=== PATIENT | female | born 1945 | race African-American/Black ===

== ENCOUNTER 2018-07-27 11:21 | Inpatient (IN) | payer OTHER ==
[~2018-07-27] VITALS: Ht 162.6 cm; Wt 74.6 kg
--- NOTE | 2018-07-27 11:23 | NUR ---
LOLIS FROM THE STREET; LOWER BACK PAIN X YESTRDAY, PT AAOX4, PT ON MONITOR, VSS, NAD NOTED, PENDING MD FAIR
--- NOTE | 2018-07-27 12:09 | NUR ---
CALLED [facility], , , NO ANSWER, LEFT MESSAGE ON VOICEMAIL.
[2018-07-27 12:20] LABS: BASOPHILS # (AUTO) 0.1 /CMM (0.0-0.2); BASOPHILS % (AUTO) 0.4 % (0.0-2.0); HEMATOCRIT 39 % (33-45); HEMOGLOBIN 12.8 g/dL (11.5-14.8); LYMPHOCYTES # (AUTO) 0.8 /CMM (0.8-4.8); LYMPHOCYTES % (AUTO) 4.2 % (20.0-44.0); MEAN CORPUSCULAR HGB CONC 33 g/dl (31.0-36.0); MEAN CORPUSCULAR VOLUME 89 fL (82-100); MONOCYTES # (AUTO) 1.2 /CMM (0.1-1.30); MONOCYTES % (AUTO) 6.1 % (2.0-12.0); NEUTROPHILS # (AUTO) 17.6 /CMM (1.8-8.9); NEUTROPHILS % (AUTO) 89.3 % (43.0-81.0); PLATELET COUNT (AUTO) 212 /CMM (150-450); RED BLOOD CELL COUNT(AUTO) 4.41 MIL/uL (4.0-5.2); WHITE BLOOD COUNT (AUTO) 19.7 K/uL (4.3-11.0)
[2018-07-27 12:23] LABS: CALCIUM, SERUM 8.4 mg/dL (8.5-10.1); CARBON DIOXIDE 28 mmol/L (21-32); CHLORIDE 103 mmol/L (98-107); CREATININE 0.6 mg/dL (0.6-1.3); GLUCOSE 117 mg/dL (74-106); POTASSIUM 3.2 mmol/L (3.5-5.1); SODIUM SERUM 138 mmol/L (136-145); UREA NITROGEN, BLOOD 14 mg/dL (7-18)
[2018-07-27 12:28] LABS: ALANINE AMINOTRANSFERASE 56 U/L (12-78); ALBUMIN 2.7 g/dL (3.4-5.0); ALKALINE PHOSPHATASE 71 U/L (46-116); ASPARTATE AMINOTRANSFERASE 77 U/L (15-37); BILIRUBIN,DIRECT 0.2 mg/dL (0.0-0.2); BILIRUBIN,TOTAL 0.7 mg/dL (0.2-1.0); LIPASE 52 U/L (73-393); TOTAL PROTEIN, SERUM 6.5 g/dL (6.4-8.2)
[2018-07-27] MEDS ORDERED: IV NS 0.9% 1,000 ML BAG IV ONE (12:30)
[2018-07-27] MEDS ORDERED: CEFTRIAXONE 1GM BAG (ER ONLY) 50 ML IV ONE ×2 (12:30→12:35)
--- NOTE | 2018-07-27 12:40 | NUR ---
CALLED [facility], VACUUM CASTER, TRANSFERRED CALL TO
--- NOTE | 2018-07-27 12:45 | NUR ---
CALLED NURSING SUP. FOR MS BED
--- NOTE | 2018-07-27 13:00 | NUR ---
URINE COLLECTED AND SENT TO LAB
[2018-07-27 13:04] LABS: APPEARANCE,URINE Slightly Cloudy (CLEAR); BILIRUBIN,URINE SMALL (NEGATIVE); BLOOD, URINE Large Ery/uL (NEGATIVE); KETONES,URINE 15 (NEGATIVE); LEUKOCYTE ESTERASE ,URINE Negative (NEGATIVE); NITRITE, URINE Negative (NEGATIVE); PH,URINE 5.5 (5.0-8.0); PROTEIN,URINE >=300 mg/dl (NEGATIVE); UGLUCOSE Negative (NEGATIVE)
[2018-07-27 13:06] LABS: COLOR,URINE Dark Yellow (YELLOW)
[2018-07-27 13:13] LABS: BACTERIA,URINE None seen /HPF (None Seen); SQUAMOUS EPITHELIAL CELL,UR Few /HPF (None Seen); URINE AMORPHOUS PHOSPHATES Moderate /HPF (None Seen); WBC,URINE 0-3 /HPF (0-3)
--- NOTE | 2018-07-27 13:39 | NUR ---
REPORT GIVEN TO MARIA ELENA CANALES FOR MOOSE; PT WILL BE TRANSPORTED TO 2ND FLOOR
[2018-07-27 14:00] VITALS: BP 119/68
[2018-07-27] MEDS ORDERED: ACETAMINOPHEN 325 MG TABLET PO PRN (14:00)
[2018-07-27] MEDS ORDERED: HYDROCODONE/APAP 5/325MG 1 EACH TABLET PO PRN (14:00)
[2018-07-27] MEDS ORDERED: Z GUARD REMEDY 2 OZ OINT TP PRN (14:00)
[2018-07-27] MEDS ORDERED: MAG HYDROX/AL HYDROX/SIMETH 30 ML UDC PO PRN (14:00)
[2018-07-27] MEDS ORDERED: MAGNESIUM HYDROXIDE 30 ML UDC PO PRN (14:00)
[2018-07-27] MEDS ORDERED: ZOLPIDEM TARTRATE 5 MG TABLET PO PRN (14:00)
[2018-07-27] MEDS ORDERED: ONDANSETRON HCL/PF 4 MG/2 ML VIAL IVP PRN (14:00)
--- NOTE | 2018-07-27 14:09 | NUR ---
MS/RN New admission New admission from emergency room with lower back pain. Patient fully admitted, pictures taken of lower extremities and right middle finger. Dr De Paz aware and awaiting admitting orders.
[2018-07-27] MEDS ORDERED: POTASSIUM CHLORIDE 20 MEQ TAB.PRT.SR PO ONE (14:30)
[2018-07-27 14:34] VITALS: BP 119/68
[2018-07-27 16:00] VITALS: BP 135/75
--- NOTE | 2018-07-27 16:34 | NUR ---
Social service consult requested by Joana De Paz DO for homelessness. Pt. is a 73 year old female admitted to the [facility] ER for a UTI. SW met with Pt. Pt. was laying on her bed. Pt. looked disheveled. Pt. is cooperative and engaged during assessment. Pt. is oriented x 3. Pt. states that she and her are currently homeless and stay in their car. Pt. moved out of her apartment in March 2018 due to non-payment of rent. Pt. is receptive to going to [facility] at [address] [place] [address]. after discharge. Pt. is also receptive to emergency senior living resources in case there is a wait list at [facility]. Pt. declined a TAP card and states that her drives their personal vehicle. Pt. states that her works 4 days a week as a nuclear security officer and that is there only household income. Pt. states that she does not receive income from public benefits programs. Pt. states that they do not have other support systems at the moment. Pt. denied substance use. Pt. denied a history of psychiatric diagnosis. Pt. denied suicidal ideation at this time. SUKHWINDER provided pt. with the following additional senior living referrals: Center at [id number] [place] [address]. [address]. [place] [address] . [facility] [address] [place] [address] ([phone]. And the [facility] Homeless Resource Directory. Homeless waiver has been signed by pt. and placed in pt.s chart. No other services needed at this time. SW is available if needed.
--- NOTE | 2018-07-27 18:25 | NUR ---
MS/RN End note Patient lethargic but arousal, states that as she is homeless she has not slept the past couple nights due to fear of being attacked. Reassurance provided to patient that she was safe whilst in the hospital. All needs addressed, time allowed for all questions and concerns to be addressed, will endorse to nightshift.
--- NOTE | 2018-07-27 19:00 | NUR ---
MS RN OPENING NOTES: RECEIVED PT ON ROOM AIR AND IS TOLERATING WELL. PT APPEARS TO BE LETHARGIC AT THIS TIME BUT IS EASILY AROUSABLE TO NAME AND TOUCH. NO SOB NOTED. NO S/S OF DISTRESS. PT SITTING UP AT BED AT THIS TIME AND IS ASLEEP. PT HAS IV ON L AC AND IS PATENT AND INTACT. CURRENTLY H/L. HAS BEEN FLUSHED. BED ALARM ACTIVATED. BED KEPT IN LOW, LOCKED POSITION, AND SIDE RAILS X 2UP. WILL CONTINUE TO MONITOR PT.
[2018-07-27 20:00] VITALS: BP 102/60
--- NOTE | 2018-07-28 06:10 | NUR ---
MS RN CLOSING NOTES: ALL NEEDS WERE ATTENDED AND ANTICIPATED FOR. PT VERBALIZED SHE HAS NOT HAD ENOUGH SLEEP SO APPEARS TO BE LETHARGIC. PT DOES NOT WANT TO BE CLEANED AT THIS TIME. PT EASILY AROUSABLE TO NAME AND TOUCH. NO SOB NOTED. NO S/S OF DISTRESS. PT HAS IV ON L AC #20G AND IS PATENT AND INTACT. HAS BEEN FLUSHED AND CURRENTLY H/L. BED ALARM ACTIVATED. BED KEPT IN LOW, LOCKED POSITION, AND SIDE RAILS X 2UP. WILL ENDORSE TO AM NURSE FOR MOOSE.
[2018-07-28 06:24] LABS: BASOPHILS % (AUTO) 0.2 % (0.0-2.0); EOSINOPHILS % (AUTO) 1.3 % (0.0-6.0); HEMATOCRIT 37 % (33-45); HEMOGLOBIN 12.5 g/dL (11.5-14.8); MEAN CORPUSCULAR HGB CONC 34 g/dl (31.0-36.0); MEAN CORPUSCULAR VOLUME 88 fL (82-100); MONOCYTES # (AUTO) 0.9 /CMM (0.1-1.30); MONOCYTES % (AUTO) 5.6 % (2.0-12.0); NEUTROPHILS # (AUTO) 14.6 /CMM (1.8-8.9); NEUTROPHILS % (AUTO) 86.9 % (43.0-81.0); PLATELET COUNT (AUTO) 210 /CMM (150-450); RED BLOOD CELL COUNT(AUTO) 4.22 MIL/uL (4.0-5.2); WHITE BLOOD COUNT (AUTO) 16.8 K/uL (4.3-11.0)
[2018-07-28 06:44] LABS: ALANINE AMINOTRANSFERASE 49 U/L (12-78); ALBUMIN 2.1 g/dL (3.4-5.0); ALKALINE PHOSPHATASE 75 U/L (46-116); ASPARTATE AMINOTRANSFERASE 73 U/L (15-37); BILIRUBIN,DIRECT 0.1 mg/dL (0.0-0.2); BILIRUBIN,TOTAL 0.5 mg/dL (0.2-1.0); CALCIUM, SERUM 8.4 mg/dL (8.5-10.1); CARBON DIOXIDE 25 mmol/L (21-32); CHLORIDE 105 mmol/L (98-107); CREATININE 0.6 mg/dL (0.6-1.3); GLUCOSE 94 mg/dL (74-106); MAGNESIUM 2.1 mg/dL (1.8-2.4); PHOSPHORUS 1.5 mg/dL (2.5-4.9); POTASSIUM 3.9 mmol/L (3.5-5.1); SODIUM SERUM 138 mmol/L (136-145); TOTAL PROTEIN, SERUM 5.9 g/dL (6.4-8.2); UREA NITROGEN, BLOOD 16 mg/dL (7-18)
[2018-07-28 06:57] LABS: CHOLESTEROL 120 mg/dL (<200); HDL CHOLESTEROL 27 mg/dL (40-60); LDL 64 mg/dL (0-99); THYROID STIMULATING HORMONE 0.842 uIU/mL (0.358-3.74); TRIGLYCERIDES 63 mg/dL (30-150)
--- NOTE | 2018-07-28 07:54 | NUR ---
RN NOTES PATIENT A/OX3, BREATHING EVEN AND UNLABORED, NO RESP DISTRESS NOTED, KEPT COMFORTABLE, NEEDS ATTENDED, CALL LIGHT WITHIN REACH, WILL CONT TO MONITOR.
[2018-07-28 08:00] VITALS: BP 105/61
--- NOTE | 2018-07-28 09:39 | NUR ---
SUKHWINDER followed-up with Case Management regarding additional housing options for when pt. is discharged. Per caseworker intake, a pt. evaluation will be conducted for further assessment.
--- NOTE | 2018-07-28 09:52 | NUR ---
RN NOTES PATIENT WAS ABLE TO AMBULATE WITH PHYSICAL THERAPY, MIN ASSIST WITH WALKER. DENIES PAIN OR DISCOMFORT AT THIS TIME, PATIENT ASSISTED TO THE COMMODE AFTER THE THERAPY.
[2018-07-28] MEDS ORDERED: K PHOS NEUTRAL 250 MG TABLET PO ONE (11:00)
--- NOTE | 2018-07-28 11:00 | NUR ---
RN NOTES RECEIVED A CALL FROM [facility], BLOOD CULTURE SHOWS GRAM POSITIVE COCCI IN CHAINS, DR. PAGAN MADE AWARE AND RECEIVED ORDER TO START VANCO PHAMARCY TO DOSE, CALL DR. YANEZ FOR CONSULT AND X-RAY OF RIGHT HAND. ORDERS NOTED AND CARRIED OUT.
[2018-07-28] MEDS ORDERED: FEE PK DOSING 1 MIN EA MC ONE (12:17)
[2018-07-28] MEDS: CEFTRIAXONE 1 G in IV D5W 50 ML IV SCH (13:11)
[2018-07-28] MEDS: VANCOMYCIN 0.75 GM in IV D5W 250 ML IV SCH (13:56)
[2018-07-28 16:00] VITALS: BP 117/65
--- NOTE | 2018-07-28 19:20 | NUR ---
MS RN OPENING NOTES: RECEIVED PT ON ROOM AIR AND IS TOLERATING WELL. NO SOB NOTED. NO S/S OF DISTRESS. PT ON BEDSIDE COMMODE AT THIS TIME. PT HAS IV AND IS PATENT AND INTACT. CURRENTLY H/L. BED KEPT IN LOW, LOCKED POSITION, AND SIDE RAILS X 2UP. WILL CONTINUE TO MONITOR PT.
[2018-07-28 20:00] VITALS: BP 113/58
--- NOTE | 2018-07-28 20:02 | NUR ---
RN NOTES PATIENT IN STABLE CONDITION, NO SIGNIFICANT CHANGE THROUGHOUT THIS SHIFT. ENDORSED TO OPTICAL MANUFACTURING TECHNICIAN FOR MOOSE.
[2018-07-29] MEDS: VANCOMYCIN 0.75 GM in IV D5W 250 ML IV SCH ×2 (00:01→13:04)
--- NOTE | 2018-07-29 07:01 | NUR ---
MS RN NOTES: PT REFUSING TO HAVE BLOOD DRAWN. WOULD LIKE TO REST SOME MORE. WOULD LIKE SHIPYARD LABORER TO COME BACK AROUND 10AM.
--- NOTE | 2018-07-29 07:22 | NUR ---
MS RN CLOSING NOTES: ALL NEEDS WERE ATTENDED AND ANTICIPATED FOR. PT SITTING ON BSC. INSTRUCTED HER TO USE CALL LIGHT WHEN SHE IS READY TO GET BACK TO BED. IV REMAINS INTACT. CURRENTLY H/L. BED KEPT IN LOW, LOCKED POSITION, AND SIDE RAILS X 2UP. ENDORSED TO AM NURSE FOR MOOSE.
[2018-07-29 08:00] VITALS: BP 116/62
--- NOTE | 2018-07-29 08:04 | NUR ---
RN NOTES PATIENT A/OX3, BREATHING EVEN AND UNLABORED, NO SOB NOTED, PATIENT CURRENTLY EATING BREAKFAST. NO DISTRESS NOTED, DENIES PAIN OR DISCOMFORT, WOUND TREATMENT RENDERED. CALL LIGHT WITHIN REACH, WILL CONTINUE TO MONITOR.
--- NOTE | 2018-07-29 09:56 | NUR ---
transaction advisory services manager discharge update: Pt. is not able to go to snf ([facility]) upon discharge due to need for IV antibiotics and general physical condition. Spoke with Cracker Dough Mixer Andie where other options for placement are being explored.
[2018-07-29 12:55] LABS: BASOPHILS # (AUTO) 0.1 /CMM (0.0-0.2); BASOPHILS % (AUTO) 0.4 % (0.0-2.0); EOSINOPHILS % (AUTO) 0.3 % (0.0-6.0); HEMATOCRIT 38 % (33-45); HEMOGLOBIN 12.7 g/dL (11.5-14.8); LYMPHOCYTES # (AUTO) 1.1 /CMM (0.8-4.8); LYMPHOCYTES % (AUTO) 6.9 % (20.0-44.0); MEAN CORPUSCULAR HGB CONC 33 g/dl (31.0-36.0); MEAN CORPUSCULAR VOLUME 88 fL (82-100); MONOCYTES # (AUTO) 1.3 /CMM (0.1-1.30); MONOCYTES % (AUTO) 7.7 % (2.0-12.0); NEUTROPHILS # (AUTO) 13.9 /CMM (1.8-8.9); NEUTROPHILS % (AUTO) 84.7 % (43.0-81.0); PLATELET COUNT (AUTO) 248 /CMM (150-450); RED BLOOD CELL COUNT(AUTO) 4.37 MIL/uL (4.0-5.2); WHITE BLOOD COUNT (AUTO) 16.4 K/uL (4.3-11.0)
[2018-07-29 13:50] LABS: CALCIUM, SERUM 8.5 mg/dL (8.5-10.1); CARBON DIOXIDE 24 mmol/L (21-32); CHLORIDE 101 mmol/L (98-107); CREATININE 0.6 mg/dL (0.6-1.3); GLUCOSE 134 mg/dL (74-106); MAGNESIUM 2.2 mg/dL (1.8-2.4); PHOSPHORUS 3.2 mg/dL (2.5-4.9); POTASSIUM 3.9 mmol/L (3.5-5.1); SODIUM SERUM 134 mmol/L (136-145); UREA NITROGEN, BLOOD 15 mg/dL (7-18)
[2018-07-29] MEDS: CEFTRIAXONE 1 G in IV D5W 50 ML IV SCH (14:43)
[2018-07-29 16:00] VITALS: BP 102/59
[2018-07-29] MEDS: LACTOBACILLUS RHAMNOSUS GG 1 EACH CAP.SPRINK PO SCH (16:50)
--- NOTE | 2018-07-29 19:02 | NUR ---
RN NOTES PATIENT A/OX4, DENIES PAIN OR DISCOMFORT, NO SIGNIFICANT CHANGE THROUGHOUT THIS SHIFT, TURNED AND REPOSITIONED, SKIN CARE PROVIDED, INTERIANO CATH DRAINING YELLOW URINE. MARTY PATENT AND DRAINED 10ML OF SEROSANGUINEOUS OUTPUT. NEEDS ATTENDED, CALL LIGHT WITHIN REACH, WILL ENDORSE TO STITCHER SET UP OPERATOR AUTOMATIC FOR MOOSE. Addendum: 07/29/18 at 1905 by ROSALIND COLLINS RN CORRECTION: WRONG ENTRY, DIFFERENT PATIENT.
--- NOTE | 2018-07-29 19:05 | NUR ---
RN NOTES PATIENT A/OX2-3, AT BEDSIDE, DENIES PAIN OR DISCOMFORT AT THIS TIME, TOLERATED ALL MEALS. PATIENT ABLE TO AMBULATE TO THE COMMODE AND WITH PHYSICAL THERAPY. WOUND TREATMENT RENDERED, ON IV ANTIBIOTIC. SEEN BY ID. NEEDS ATTENDED AND MET, CALL LIGHT WITHIN REACH, WILL ENDORSE TO ASSET AVAILABILITY LEADER FOR MOOSE.
--- NOTE | 2018-07-29 19:15 | NUR ---
MS RN NOTES RECEIVED PT IN BED SLEEPING BUT EASILY AWOKEN VERBALLY OR BY TOUCH. PATIENT A/OX2-3 AND ABLE TO MAKE NEEDS KNOWN. PT DENIES PAIN OR DISCOMFORT AT THIS TIME. PT WITH LAC 20G PATENT AND INTACT SL. SAFETY MEASURES IN PLACE WITH BED IN LOWEST LOCKED POSITION WITH SIDE RAILS UP X2. CALL LIGHT WITHIN REACH. WILL CONTINUE TO MONITOR.
[2018-07-30] MEDS: VANCOMYCIN 1 GM in IV D5W 250 ML IV SCH ×3 (00:05→21:05)
[2018-07-30 06:29] LABS: CALCIUM, SERUM 8.3 mg/dL (8.5-10.1); CARBON DIOXIDE 28 mmol/L (21-32); CHLORIDE 103 mmol/L (98-107); CREATININE 0.6 mg/dL (0.6-1.3); GLUCOSE 124 mg/dL (74-106); POTASSIUM 3.7 mmol/L (3.5-5.1); SODIUM SERUM 139 mmol/L (136-145); UREA NITROGEN, BLOOD 12 mg/dL (7-18)
--- NOTE | 2018-07-30 06:45 | NUR ---
MS RN NOTES PT IN BED SLEEPING BUT EASILY AWOKEN VERBALLY OR BY TOUCH. PATIENT A/OX2-3 AND ABLE TO MAKE NEEDS KNOWN. PT DENIES PAIN OR DISCOMFORT AT THIS TIME. RESPIRATIONS EVEN AND UNLABORED WITH NO S/S OF ACUTE DISTRESS OR SOB NOTED THROUGHOUT SHIFT. PT KEPT CLEAN, DRY, AND COMFORTABLE. ASSISTED WITH ADLS NEEDED. PT WITH LAC 20G PATENT AND INTACT SL. SAFETY MEASURES IN PLACE WITH BED IN LOWEST LOCKED POSITION WITH SIDE RAILS UP X2. CALL LIGHT WITHIN REACH. WILL ENDORSE TO ONCOMING NURSE FOR MOOSE.
--- NOTE | 2018-07-30 07:12 | NUR ---
MS RN NOTES PATIENT IN BED ALERT ORIENTED X 3. NO ACUTE DISTRESS NOTED. BREATHING UNLABORED. NO SOB NOTED. IV ACCESS PATENT AND INTACT, NO REDNESS OR SWELLING NOTED. SAFETY MEASURES IN PLACE. CALL LIGHT WITHIN REACH. WILL CONTINUE TO MONITOR ACCORDINGLY.
[2018-07-30 08:00] VITALS: BP 120/63
[2018-07-30] MEDS: LACTOBACILLUS RHAMNOSUS GG 1 EACH CAP.SPRINK PO SCH ×2 (09:18→17:27)
[2018-07-30] MEDS: CEFTRIAXONE 1 G in IV D5W 50 ML IV SCH (14:16)
--- NOTE | 2018-07-30 14:30 | NUR ---
MS RN NOTES SEEN BY DR SR , WOUND CARE DONE AND DRESSING CHANGED.
[2018-07-30] MEDS ORDERED: LACT1CAP72 PO (14:52)
[2018-07-30] MEDS ORDERED: MAGN400O6 PO (14:52)
[2018-07-30] MEDS ORDERED: HYDR-3972 PO (14:52)
[2018-07-30] MEDS ORDERED: ZOLP5TAB2 PO (14:52)
[2018-07-30] MEDS ORDERED: MAG30ORA PO (14:52)
[2018-07-30] MEDS ORDERED: ACET325T53 PO (14:52)
--- NOTE | 2018-07-30 14:54 | NUR ---
MS RN NOTES SEEN AND EVALUATED BY DR EJ HARRISON WITH ORDERS FOR PICC LINE INSERTION , NOTED AND CARRIED OUT.
[2018-07-30 16:00] VITALS: BP 131/66
--- NOTE | 2018-07-30 19:00 | NUR ---
MS RN NOTES PATIENT IN BED ALERT ORIENTED X 3. NO ACUTE DISTRESS NOTED. BREATHING UNLABORED. NO SOB NOTED. IV ACCESS PATENT AND INTACT, NO REDNESS OR SWELLING NOTED. DUE MEDICATIONS GIVEN, NO ASE NOTED. NEEDS ATTENDED AND ANTICIPATED. KEPT CLEAN DRY AND COMFORTABLE. RIGHT THIRD FINGER DRESSING CLEAN DRY AND INTACT. SAFETY MEASURES IN PLACE. CALL LIGHT WITHIN REACH. CURRENTLY UNDERGOING PICC LINE INSERTION BY PICC LINE NURSE, WILL ENDORSE TO NIGHT NURSE FOR CONTINUITY OF CARE.
--- NOTE | 2018-07-30 19:10 | NUR ---
MS RN NOTES PICC LINE INSERTED, DONE BY PICC LINE NURSE KIRAN ON LEFT BRACHIAL DOUBLE LUMEN, 41 CM INSIDE, 32CM ARM CIRCUMFERENCE, SECURED WITH TRANSPARENT DRESSING LABELED AND DATED. NO REDNESS OR SWELLING NOTED. WILL CONTINUE TO MONITOR AND ENDORSE TO NIGHT NURSE.
[2018-07-30 20:00] VITALS: BP 153/77
[2018-07-31] MEDS: VANCOMYCIN 1 GM in IV D5W 250 ML IV SCH ×2 (05:10→14:33)
--- NOTE | 2018-07-31 06:47 | NUR ---
MS RN NOTES AWAKE & RESPONSIVE. NOT IN ANY DISTRESS. NO SOB NOTED. DENIES ANY PAIN OR DISCOMFORT AT THIS TIME. WITH PICC LINE PATENT & INTACT. CALL LIGHT WITHIN REACH. BED IN LOWEST POSITION. SR UP X 3 WITH BED ALARM ON FOR SAFETY. WILL ENDORSE TO NEXT SHIFT.
[2018-07-31 07:00] LABS: CALCIUM, SERUM 8.1 mg/dL (8.5-10.1); CARBON DIOXIDE 29 mmol/L (21-32); CHLORIDE 104 mmol/L (98-107); CREATININE 0.6 mg/dL (0.6-1.3); GLUCOSE 129 mg/dL (74-106); SODIUM SERUM 141 mmol/L (136-145); UREA NITROGEN, BLOOD 9 mg/dL (7-18)
--- NOTE | 2018-07-31 07:20 | NUR ---
RN OPENING NOTES PATIENT IN BED ALERT ORIENTED X 3. NO ACUTE DISTRESS NOTED. BREATHING UNLABORED. NO SOB NOTED. IV ACCESS PATENT AND INTACT, NO REDNESS OR SWELLING NOTED. SAFETY MEASURES IN PLACE. SAFETY MEASURES INITIATED. BED IN LOW/LOCKED POSITION, SIDERAILS UPX2, CALL LIGHT WITHIN REACH. WILL CONTINUE TO MONITOR ACCORDINGLY.
[2018-07-31 08:00] VITALS: BP 110/55
--- NOTE | 2018-07-31 08:10 | NUR ---
RN NOTES ASSISTED PATIENT TRANSFER ON THE CHAIR, SITTING. TOLERATED WELL.
[2018-07-31] MEDS: LACTOBACILLUS RHAMNOSUS GG 1 EACH CAP.SPRINK PO SCH (08:52)
[2018-07-31] MEDS: CEFTRIAXONE 1 G in IV D5W 50 ML IV SCH (13:15)
--- NOTE | 2018-07-31 18:35 | NUR ---
discharged patient in stable condition picked up by paramedics. report given to alicia bowen at [facility], instrucrtions given, verbalized understanding. all belongings returned, all forms signed. removed left ac iv access, no complications, removed name band. left upper arm picc line intact and patent, abx therapy at snf for 6weeks. photos taken and placed on chart. dc paperwork given to paramedics.
[2018-08-12] MEDS ORDERED: TOBR5DRO48 RIGHTEYE (11:22)
[2018-08-12] MEDS ORDERED: SODI473S8 TOP (11:22)
[2018-08-12] MEDS ORDERED: LEVO500T75 PO (11:22)
== END 2018-07-31 18:40 | DRG 720 ==
LOC: ER 11:25 → MEDSG2 13:12
PROVIDERS: ADMIT Student in an Organized Health Care Education/Training Program
PROC: B548ZZA Ultrasonography of Superior Vena Cava, Guidance (ICD-10-PCS; principal; 2018-07-30)
PROC: 02HV33Z Insertion of Infusion Device into Superior Vena Cava, Percutaneous Approach (ICD-10-PCS; principal; 2018-07-30)
DX: A40.9 Streptococcal sepsis, unspecified (principal); E44.0 Moderate protein-calorie malnutrition; E83.39 Other disorders of phosphorus metabolism; M86.9 Osteomyelitis, unspecified; D72.829 Elevated white blood cell count, unspecified; S61.302A Unspecified open wound of right middle finger with damage to nail, initial encounter; E66.9 Obesity, unspecified; E87.6 Hypokalemia; L03.011 Cellulitis of right finger; M48.07 Spinal stenosis, lumbosacral region; Z59.0 Homelessness; X58.XXXA Exposure to other specified factors, initial encounter; Y92.89 Other specified places as the place of occurrence of the external cause; Z68.28 Body mass index [BMI] 28.0-28.9, adult; R74.0 Nonspecific elevation of levels of transaminase and lactic acid dehydrogenase [LDH]; M51.36 Other intervertebral disc degeneration, lumbar region; L60.3 Nail dystrophy
CPT/HCPCS: 36415; 36569; 71045-TC; 72128-TC; 72131-TC; 73130-TC; 80048-TC; 80061-TC; 80076-TC; 80202-TC; 80305; 81000-TC; 83605-TC; 83690-TC; 83735-TC; 84100-TC; 84443-TC; 85025-TC; 87040-TC; 87081-TC; 87086-TC; 93307-TC; 93930-TC; 97110-TC; 97116-TC; 97530-TC; A6402; A6403; C1751; G0378; J0696; J3370; J7030; J7040; J7050; J7060

== ENCOUNTER 2018-08-10 15:29 | Inpatient (IN) | payer OTHER ==
[~2018-08-10] VITALS: Ht 154.9 cm; Wt 72.6 kg
[~2018-08-10 15:29] MED LIST: ACET325T53 PO; HYDR-3972 PO; LACT1CAP72 PO; MAG30ORA PO; MAGN400O6 PO; ZOLP5TAB2 PO
--- NOTE | 2018-08-10 16:16 | NUR ---
PT BIB PA FROM SNF, WOUND CHECK ON RT MID FINGER. PT IS AAOX4, NOT IN RESPIRATORY DISTRESS, HOOKED TO MONITOR, V/S STABLE, KEPT RESTED AND COMFORTABLE, WILL CONTINUE TO MONITOR.
--- NOTE | 2018-08-10 16:28 | NUR ---
FOSTER PA AT BEDSIDE FOR EVAL.
--- NOTE | 2018-08-10 16:31 | NUR ---
CALLED , PAGED TO CALL BACK.
[2018-08-10] MEDS ORDERED: L.AC460C PO (16:50)
[2018-08-10] MEDS ORDERED: MAG355OR18 PO (16:50)
[2018-08-10] MEDS ORDERED: SULF15DR6 OP (16:50)
[2018-08-10] MEDS ORDERED: [UNRECOGNIZED DRUG - CODE] IV (16:50)
[2018-08-10] MEDS ORDERED: CEFT1VIA15 IV (16:50)
[2018-08-10] MEDS ORDERED: HYDR-4384 PO (16:50)
[2018-08-10] MEDS ORDERED: MAGN400O6 GT (16:50)
[2018-08-10] MEDS ORDERED: ACET325T53 PO (16:50)
--- NOTE | 2018-08-10 16:55 | NUR ---
WOUND CULTURE OBTAINED AND SENT TO LAB.
[2018-08-10] MEDS ORDERED: VANCOMYCIN 1 GM in IV D5W 250 ML IV ONE (17:00)
[2018-08-10] MEDS ORDERED: PIPERACILLIN /TAZOBACTAM 3.375 G in IV D5W 50 ML IV ONE (17:00)
--- NOTE | 2018-08-10 17:00 | NUR ---
PT IS WHEELED TO CT SCAN VIA [facility].
[2018-08-10 17:26] LABS: BASOPHILS # (AUTO) 0.1 /CMM (0.0-0.2); BASOPHILS % (AUTO) 1.2 % (0.0-2.0); EOSINOPHILS % (AUTO) 1.4 % (0.0-6.0); HEMATOCRIT 36 % (33-45); HEMOGLOBIN 11.7 g/dL (11.5-14.8); LYMPHOCYTES % (AUTO) 16.1 % (20.0-44.0); MEAN CORPUSCULAR HGB CONC 33 g/dl (31.0-36.0); MEAN CORPUSCULAR VOLUME 89 fL (82-100); MONOCYTES # (AUTO) 0.6 /CMM (0.1-1.30); MONOCYTES % (AUTO) 10.3 % (2.0-12.0); NEUTROPHILS # (AUTO) 4.2 /CMM (1.8-8.9); PLATELET COUNT (AUTO) 422 /CMM (150-450); WHITE BLOOD COUNT (AUTO) 5.9 K/uL (4.3-11.0)
--- NOTE | 2018-08-10 17:42 | NUR ---
URINE SPECIMEN COLLECTED AND SENT TO LAB.
[2018-08-10 17:51] LABS: CALCIUM, SERUM 8.6 mg/dL (8.5-10.1); CARBON DIOXIDE 30 mmol/L (21-32); CHLORIDE 103 mmol/L (98-107); CREATININE 0.7 mg/dL (0.6-1.3); GLUCOSE 101 mg/dL (74-106); POTASSIUM 4.1 mmol/L (3.5-5.1); SODIUM SERUM 138 mmol/L (136-145); UREA NITROGEN, BLOOD 12 mg/dL (7-18)
[2018-08-10 17:52] LABS: APPEARANCE,URINE Clear (CLEAR); BILIRUBIN,URINE Negative (NEGATIVE); BLOOD, URINE Negative Ery/uL (NEGATIVE); COLOR,URINE Yellow (YELLOW); KETONES,URINE Negative (NEGATIVE); LEUKOCYTE ESTERASE ,URINE Negative (NEGATIVE); NITRITE, URINE Negative (NEGATIVE); PROTEIN,URINE Negative (NEGATIVE); UGLUCOSE Negative (NEGATIVE); UROBILINOGEN,URINE 0.2 EU/dL (0.2)
--- NOTE | 2018-08-10 18:19 | NUR ---
DANIELLE BO HOG COUNTER AT BEDSIDE FOR EVAL.
--- NOTE | 2018-08-10 18:27 | NUR ---
CALLED NURSING SUP. FOR MS BED
--- NOTE | 2018-08-10 19:22 | NUR ---
May olmedo in [facility] - 08/10/18 at 1932 by RIO REPORT GIVEN TO ALLY KELLY FOR MOOSE.
[2018-08-10] MEDS ORDERED: ACETAMINOPHEN 325 MG TABLET PO PRN (19:30)
[2018-08-10] MEDS ORDERED: MAG HYDROX/AL HYDROX/SIMETH 30 ML UDC PO PRN (19:30)
[2018-08-10] MEDS ORDERED: ONDANSETRON HCL/PF 4 MG/2 ML VIAL IVP PRN (19:30)
[2018-08-10] MEDS ORDERED: HYDROCODONE/APAP 5/325MG 1 EACH TABLET PO PRN (19:30)
[2018-08-10] MEDS ORDERED: HYDROCODONE/APAP 10/325MG 1 EA TABLET PO PRN (19:30)
[2018-08-10] MEDS ORDERED: MAGNESIUM HYDROXIDE 30 ML UDC PO PRN (19:30)
[2018-08-10] MEDS ORDERED: TEMAZEPAM 7.5 MG CAPSULE PO PRN (19:30)
--- NOTE | 2018-08-10 19:32 | NUR ---
REPORT GIVEN TO ALLY wilson FOR MOOSE.
--- NOTE | 2018-08-10 19:41 | NUR ---
MS 311-2
--- NOTE | 2018-08-10 19:42 | NUR ---
REPORTED FEELING BETTER. DRESSING ON R FINGER C/D/I. HELPED PT W/ BED ALLEN. WILL CONT TO MONITOR.
--- NOTE | 2018-08-10 19:51 | NUR ---
REPORT GIVEN TO MOLLY CANALES FROM THIRD FLOOR. REPEAT ECG WAS CANCELLED BY ER .
--- NOTE | 2018-08-10 20:03 | NUR ---
PT WAS TRANSFERRED TO THE THIRD FLOOR INSTABLE CONDITION.
--- NOTE | 2018-08-10 20:15 | NUR ---
RN MS ADMITTING NOTES PT ARRIVED TO UNIT VIA [facility], PT AWAKE ALERT ORIENTED X3-4, BREATHING EVEN AN UNLABORED ON ROOM AIR, NO SOB. NO COMPLAINT OF PAIN OR DISCOMFORT AT THIS TIME. PICC LINE ON THE L UPPER ARM PATENT AND FLUSHING. WOUND PICTURES TAKEN. BED IN LOWEST LOCKED POSITION, CALL LIGHTWITHIN REACH AT ALL TIMES, WILL CONTINUE TO MONITOR FREQUENTLY
[2018-08-10] MEDS ORDERED: FEE PK DOSING 1 MIN EA MC ONE (20:19)
[2018-08-10 20:30] VITALS: BP 153/64
[2018-08-10] MEDS: IV NS 0.9% 1,000 ML IV PRN (21:18)
[2018-08-10] MEDS: PIPERACILLIN /TAZOBACTAM 3.375 G in IV D5W 100 ML IV SCH (22:29)
[2018-08-11] MEDS ORDERED: PIPERACILLIN /TAZOBACTAM 3.375 G in IV D5W 50 ML IV SCH ×2
[2018-08-11] MEDS: PIPERACILLIN /TAZOBACTAM 3.375 G in IV D5W 100 ML IV SCH ×2 (06:01→14:27)
[2018-08-11 06:14] LABS: BASOPHILS # (AUTO) 0.1 /CMM (0.0-0.2); BASOPHILS % (AUTO) 1.1 % (0.0-2.0); EOSINOPHILS % (AUTO) 0.8 % (0.0-6.0); HEMATOCRIT 36 % (33-45); HEMOGLOBIN 12.1 g/dL (11.5-14.8); LYMPHOCYTES # (AUTO) 0.9 /CMM (0.8-4.8); LYMPHOCYTES % (AUTO) 20.2 % (20.0-44.0); MEAN CORPUSCULAR HGB CONC 34 g/dl (31.0-36.0); MEAN CORPUSCULAR VOLUME 88 fL (82-100); MONOCYTES # (AUTO) 0.7 /CMM (0.1-1.30); MONOCYTES % (AUTO) 14.2 % (2.0-12.0); NEUTROPHILS % (AUTO) 63.7 % (43.0-81.0); PLATELET COUNT (AUTO) 395 /CMM (150-450); WHITE BLOOD COUNT (AUTO) 4.6 K/uL (4.3-11.0)
--- NOTE | 2018-08-11 06:31 | NUR ---
RN MS CLOSING NOTES PT AWAKE ALERT ORIENTED X3-4, BREATHING EVEN AN UNLABORED ON ROOM AIR, NO SOB. NO COMPLAINT OF PAIN OR DISCOMFORT AT THIS TIME. PICC LINE ON THE L UPPER ARM PATENT AND FLUSHING WITH NS @75ML/HR. BED IN LOWEST LOCKED POSITION, CALL LIGHT WITHIN REACH AT ALL TIMES, WILL ENDORSE TO DAY NURSE FOR MOOSE.
[2018-08-11 06:36] LABS: CALCIUM, SERUM 8.7 mg/dL (8.5-10.1); CARBON DIOXIDE 25 mmol/L (21-32); CHLORIDE 104 mmol/L (98-107); CREATININE 0.7 mg/dL (0.6-1.3); GLUCOSE 91 mg/dL (74-106); PHOSPHORUS 4.2 mg/dL (2.5-4.9); POTASSIUM 3.9 mmol/L (3.5-5.1); SODIUM SERUM 138 mmol/L (136-145); UREA NITROGEN, BLOOD 8 mg/dL (7-18)
[2018-08-11 06:42] LABS: CHOLESTEROL 153 mg/dL (<200); HDL CHOLESTEROL 36 mg/dL (40-60); LDL 108 mg/dL (0-99); TRIGLYCERIDES 53 mg/dL (30-150)
[2018-08-11] MEDS: PANTOPRAZOLE 40 MG TABLET.DR PO SCH (07:59)
--- NOTE | 2018-08-11 08:51 | NUR ---
RN NOTES PATIENT A/OX3-4, BREATHING EVEN AND UNLABORED, NO SOB NOTED, DENIES PAIN OR DISCOMFORT AT THIS TIME, NEEDS ATTENDED, CALL LIGHT WITHIN REACH, WILL CONTINUE TO MONITOR.
[2018-08-11] MEDS: LACTOBACILLUS RHAMNOSUS GG 1 EACH CAP.SPRINK PO SCH ×2 (09:11→16:28)
[2018-08-11] MEDS: IV NS 0.9% 1,000 ML IV PRN (10:05)
[2018-08-11 16:00] VITALS: BP 129/59
[2018-08-11] MEDS: DAKINS QUARTER STRENGTH (0.125%) 480 ML BOTTLE TOP SCH (16:28)
[2018-08-11] MEDS ORDERED: LIDOCAINE 1%-EPI 1:100,000 20 ML VIAL TP ONE (16:30)
--- NOTE | 2018-08-11 16:35 | NUR ---
RN NOTES INFORMED DR. YANEZ PATIENT'S SACRAL WOUND. RECEIVED NO NEW ORDER AT THIS TIME.
[2018-08-11] MEDS ORDERED: VANCOMYCIN 1.5 GM in IV D5W 500 ML IV SCH (17:00)
[2018-08-11] MEDS: SULFACETAMIDE 10% OPHTH 15 ML BOTTLE EACHEYE SCH ×2 (18:24→20:20)
--- NOTE | 2018-08-11 18:53 | NUR ---
RN NOTES PT A/OX4, SITTING ON THE CHAIR, PATIENT S/P WOUND DEBRIDEMENT ON RIGHT MIDDLE FINGER WITH DR. YANEZ, RIGHT MIDDLE FINGER DRESSING, C/D/I. PHOTO TAKEN AND PLACED IN CHART. BREATHING EVEN AND UNLABORED. NO SOB OR PAIN NOTED AT THIS TIME. DENIES PAIN OR DISCOMFORT AT THIS TIME. NO SIGNIFICANT CHANGES THROUGHOUT THE SHIFT. ALL NEEDS ATTENDED AND MET, CALL LIGHT WITHIN REACH, WILL ENDORSED TO PACKAGE LINE OPERATOR RN MOOSE.
--- NOTE | 2018-08-11 20:00 | NUR ---
MS RN NOTES PATIENT AWAKE IN BED WITH NO DISTRESS NOTED. CALL LIGHT WITHIN REACH. PERIPHERAL LINE IN PERIPHERAL LINE INTACT AND PATENT. NO C/O PAIN OR DISCOMFORT. BED IN LOW LOCK SETTING. ROOM FREE OF CLUTTER AND BELONGINGS KEPT NEAR BEDSIDE. WILL CONTINUE TO MONITOR.
[2018-08-11] MEDS: CEFTRIAXONE 1 G in IV D5W 50 ML IV SCH (20:20)
[2018-08-11 20:30] VITALS: BP 134/86
[2018-08-12] MEDS: IV NS 0.9% 1,000 ML IV PRN (01:08)
[2018-08-12 06:38] LABS: CALCIUM, SERUM 8.8 mg/dL (8.5-10.1); CARBON DIOXIDE 26 mmol/L (21-32); CHLORIDE 104 mmol/L (98-107); CREATININE 0.6 mg/dL (0.6-1.3); GLUCOSE 93 mg/dL (74-106); SODIUM SERUM 139 mmol/L (136-145); UREA NITROGEN, BLOOD 8 mg/dL (7-18)
--- NOTE | 2018-08-12 06:55 | NUR ---
MS RN NOTES PATIENT ASLEEP IN BED WITH NO DISTRESS NOTED. CALL LIGHT WITHIN REACH. ALL DUE MEDS GIVEN ORDERED WITH NO ASE NOTED. PICC LINE INTACT AND PATENT. NO C/O PAIN OR DISCOMFORT BED IN LOW LOCK SETTING. ALL BELONGINGS KEPT NEAR BEDSIDE. WILL ENDORSE TO ONCOMING SHIFT.
--- NOTE | 2018-08-12 07:39 | NUR ---
RN NOTES PATIENT A/OX3, BREATHING EVEN AND UNLABORED, NO SOB NOTED, KEPT COMFORTABLE, RIGHT MIDDLE FINGER DRESSING C/D/I. NEEDS ATTENDED AND MET, CALL LIGHT WITHIN REACH, WILL CONTINUE TO MONITOR.
[2018-08-12 08:00] VITALS: BP 145/71
[2018-08-12] MEDS: LACTOBACILLUS RHAMNOSUS GG 1 EACH CAP.SPRINK PO SCH ×2 (08:30→17:33)
[2018-08-12] MEDS: PANTOPRAZOLE 40 MG TABLET.DR PO SCH (08:30)
[2018-08-12] MEDS: SULFACETAMIDE 10% OPHTH 15 ML BOTTLE EACHEYE SCH ×4 (08:32→21:26)
[2018-08-12] MEDS: DAKINS QUARTER STRENGTH (0.125%) 480 ML BOTTLE TOP SCH (08:32)
--- NOTE | 2018-08-12 09:37 | NUR ---
WOUND CARE CONSULT WOUND CARE RECEIVED CONSULT FOR RIGHT HAND THIRD DIGIT CELLULITIS POSSIBLE OSTEO. WOUND CARE WILL DEFER CONSULT AND TREATMENT PLAN TO PLASTIC SURGICAL TEAM WHO ARE CURRENTLY FOLLOWING THIS PATIENT. PATIENT WITH MIAH AT 17, ALL PRESSURE ULCER PREVENTION MEASURES ARE NOTED TO BE IN PLACE AT THIS TIME. WILL SEE PRN.
--- NOTE | 2018-08-12 10:30 | NUR ---
RN NOTES WOUND TREATMENT RENDERED. DRESSING CHANGED ON RIGHT MIDDLE FINGER.
[2018-08-12] MEDS ORDERED: LEVO500T75 PO (11:22)
[2018-08-12] MEDS ORDERED: TOBR5DRO48 RIGHTEYE (11:22)
[2018-08-12] MEDS ORDERED: SODI473S8 TOP (11:22)
--- NOTE | 2018-08-12 13:00 | NUR ---
RN NOTES PATIENT ASSISTED TO CHAIR DURING MEALS. PHYSICAL THERAPY AMBULATED THE PATIENT TO HALLWAY AND BACK TO THE ROOM WITH A WALKER IN NO DISTRESS. ATTENDED TO NEEDS. WILL CONTINUE TO MONITOR.
--- NOTE | 2018-08-12 13:27 | NUR ---
RN NOTES REPORT GIVEN TO TAVON RN ARCHITECTURE FACULTY MEMBER AT [facility], RE: DISCHARGE INSTRUCTIONS. AND VERBALIZED UNDERSTANDING. PATIENT'S AMBULANCE ETA IS 1500.
--- NOTE | 2018-08-12 14:09 | NUR ---
RN NOTES SKIN ASSESSMENT DONE, SACRAL PHOTO SHOWED TO ZAINAB BANERJEE OF DR. YANEZ. RECEIVED ORDER FROM DR. YANEZ TO HOLD DISCHARGE. DR. LIEN SALCEDO MADE AWARE.
--- NOTE | 2018-08-12 15:30 | NUR ---
RN NOTES S/P SACRAL DEBRIDEMENT BY ZAINAB BANERJEE, APPLIED MEPILEX, AT THIS TIME, NO BLEEDING NOTED. PATIENT ASSISTED TO BEDSIDE COMMODE TWICE BY INSPECTOR PRECISION ASSEMBLY, PATIENT ABLE TO MOVE IN BED INDEPENDENTLY. ENCOURAGED PATIENT TO TURN SIDE TO SIDE FOR SKIN MANAGEMENT. HYDROGEL ORDERED BY ZAINAB BANERJEE, AND AWAITING FOR DELIVERY FROM PHARMACY. PER PATIENT, "I GOT THIS WOUND ON MY BEHIND BECAUSE OF THAT PLACE (REFERRING TO [facility] [place]), I DIDN'T HAVE THIS BEFORE GOING THERE."
[2018-08-12 16:00] VITALS: BP 142/64
--- NOTE | 2018-08-12 16:20 | NUR ---
RN NOTES REPORT GIVEN TO RENUKA CANALES FOR CONTINUITY OF CARE. RECEIVED ORDER FROM DR. SALCEDO TO [facility], PHARMACY TO DOSE. ORDER NOTED AND CARRIED OU T.
--- NOTE | 2018-08-12 16:30 | NUR ---
MS RN Note Received report from ALLY Chaidez for continuity of care. Patient currently asleep in no acute distress. Will continue to monitor.
[2018-08-12] MEDS ORDERED: VANCOMYCIN 1.5 GM in IV D5W 500 ML IV SCH (17:00)
[2018-08-12] MEDS: HYDROGEL DRESSING 90 GM TUBE TP SCH (17:37)
--- NOTE | 2018-08-12 17:55 | NUR ---
MS RN Note Pharmacy to deliver Vancomycin per new order. Spoke with pharmacist over the phone. Will follow-up.
--- NOTE | 2018-08-12 18:30 | NUR ---
MS RN Closing Note Patient currently awake, semi-Overton's position. Alert and oriented x3, able to make needs known. No acute distress. Respirations even and unlabored on room air. No complaints of pain or discomfort at this time. PICC line access to the left upper arm intact, patent and infusing fluids as ordered. Dressing noted to the right middle finger, clean, dry and intact. Fall and safety precautions in place: bed in lowest and locked position, side rails up x 2, bed alarm on, call light and personal possessions within reach. Floor free of clutter and well-lit. Patient verbalized understanding of safety precautions. All needs attended to. Will endorse to to shift leader RN for continuity of care.
--- NOTE | 2018-08-12 19:15 | NUR ---
MS RN NOTES RECEIVED ON BED SLEEPING,AROUSABLE TO VERBAL STIMULI.BREATHING REGULAR,NOT IN ANY FORM OF DISTRESS.PICC LINE LEFT UPPER ARM INTACT AND PATENT.MEPILEX INTACT ON SACRAL WOUND,ENCOURAGED TO REPOSITION SELF WHILE ON BED.BED ON LOWEST POSITION AND LOCKED.CALL LIGHT IN REACH,NEEDS ANTICIPATED.
[2018-08-12] MEDS: CEFTRIAXONE 1 G in IV D5W 50 ML IV SCH (19:32)
[2018-08-12 20:00] VITALS: BP 140/67
[2018-08-12 20:04] VITALS: BP 140/67
[2018-08-13] MEDS: IV NS 0.9% 1,000 ML IV PRN (00:31)
--- NOTE | 2018-08-13 05:00 | NUR ---
MS RN NOTES DRESSING CHANGE DONE ON SACRAL AND RIGHT MIDDLE FINGER,NO BLEEDING NOTED.
--- NOTE | 2018-08-13 06:24 | NUR ---
MS RN NOTES SLEPT WELL AT NIGHT.PAIN TOLERABLE ON RIGHT MIDDLE FINGER.SACRAL WOUND TREAT WITH HYDROGEL AND COVER WITH MEPILEX.ABLE TO TRANSFER TO BEDSIDE COMMODE ASSISTED.IN NO ACUTE DISTRESS.IVF IN PROGRESS.PICC LINE DRESSING CHANGED DONE ASEPTICALLY.WILL ENDORSE TO DAY NURSE FOR MOOSE.
[2018-08-13 06:46] LABS: CALCIUM, SERUM 8.7 mg/dL (8.5-10.1); CARBON DIOXIDE 25 mmol/L (21-32); CHLORIDE 105 mmol/L (98-107); CREATININE 0.7 mg/dL (0.6-1.3); GLUCOSE 90 mg/dL (74-106); POTASSIUM 4.2 mmol/L (3.5-5.1); SODIUM SERUM 139 mmol/L (136-145); UREA NITROGEN, BLOOD 9 mg/dL (7-18)
[2018-08-13 08:00] VITALS: BP 127/58
--- NOTE | 2018-08-13 08:00 | NUR ---
MS RN OPENING NOTES Received Patient comfortable and resting in bed. A/O x 3. VS stable with no acute distress. Breathing even and unlabored on room air with no respiratory distress. Denies pain. PICC line on JORGE clean, dry, intact and flushing well. IVF NS running at 75ml/hr. Wound dressing on RIGHT MIDDLE FINGER soiled. Will intervene and change dressing as ordered. Safety precautions in place. Bed locked and set to lowest position with side rails x 2 up. Will continue to monitor.
[2018-08-13] MEDS: LACTOBACILLUS RHAMNOSUS GG 1 EACH CAP.SPRINK PO SCH ×2 (08:42→17:19)
[2018-08-13] MEDS: PANTOPRAZOLE 40 MG TABLET.DR PO SCH (08:42)
[2018-08-13] MEDS: SULFACETAMIDE 10% OPHTH 15 ML BOTTLE EACHEYE SCH ×4 (08:42→21:45)
[2018-08-13] MEDS: DAKINS QUARTER STRENGTH (0.125%) 480 ML BOTTLE TOP SCH (08:43)
[2018-08-13] MEDS: HYDROGEL DRESSING 90 GM TUBE TP SCH (08:43)
[2018-08-13 10:00] VITALS: BP 127/58
[2018-08-13 16:00] VITALS: BP 137/70
--- NOTE | 2018-08-13 19:33 | NUR ---
MS RN CLOSING NOTES Patient comfortable and resting in chair. A/O x 3. VS stable with no acute distress. Breathing even and unlabored on room air with no respiratory distress. Denies pain. PICC line on JORGE clean, dry, intact and flushing well. IVF NS running at 75ml/hr. Wound dressing on RIGHT MIDDLE FINGER clean, dry and intact. Sacral dressing clean, dry and intact. Safety precautions in place. Bed locked and set to lowest position with side rails x 2 up. All needs rendered at this time. Will endorse plan of care to oncoming shift.
[2018-08-13 20:00] VITALS: BP 119/64
[2018-08-13] MEDS: CEFTRIAXONE 1 G in IV D5W 50 ML IV SCH (20:01)
[2018-08-13] MEDS ORDERED: FEE PK DOSING 1 MIN EA MC ONE ×2 (20:42→20:43)
[2018-08-13] MEDS ORDERED: VANCOMYCIN 1 GM in IV D5W 250 ML IV SCH (22:00)
[2018-08-14] MEDS: IV NS 0.9% 1,000 ML IV PRN (05:10)
[2018-08-14 06:47] LABS: CALCIUM, SERUM 8.6 mg/dL (8.5-10.1); CARBON DIOXIDE 26 mmol/L (21-32); CHLORIDE 104 mmol/L (98-107); CREATININE 0.7 mg/dL (0.6-1.3); GLUCOSE 93 mg/dL (74-106); SODIUM SERUM 139 mmol/L (136-145); UREA NITROGEN, BLOOD 9 mg/dL (7-18)
--- NOTE | 2018-08-14 07:02 | NUR ---
MS RN NOTES AWAKE & RESPONSIVE. NOT IN ANY DISTRESS. NO SOB NOTED. DENIES ANY PAIN OR DISCOMFORT AT THIS TIME. WITH IVF INFUSING WELL. MONITORED ACCORDINGLY. CALL LIGHT WITHIN REACH. BED IN LOWEST POSITION. SR UP X 3 WITH BED ALARM ON FOR FOR SAFETY. WILL ENDORSE TO NEXT SHIFT.
[2018-08-14 07:42] VITALS: BP 141/63
[2018-08-14] MEDS: PANTOPRAZOLE 40 MG TABLET.DR PO SCH (07:46)
[2018-08-14 08:00] VITALS: BP 141/63
--- NOTE | 2018-08-14 08:00 | NUR ---
MS RN OPENING NOTES Received Patient comfortable and resting in chair. A/O x 3. VS stable with no acute distress. Breathing even and unlabored on room air with no respiratory distress. Denies pain. PICC line on JORGE clean, dry, intact and flushing well. IVF NS running at 75ml/hr. Wound dressing on RIGHT MIDDLE FINGER soiled. Will intervene and change dressing as ordered. Sacral dressing clean, dry and intact. Safety precautions in place. Call light within reach. Will continue to monitor.
[2018-08-14] MEDS: SULFACETAMIDE 10% OPHTH 15 ML BOTTLE EACHEYE SCH ×2 (09:40→13:06)
[2018-08-14] MEDS: LACTOBACILLUS RHAMNOSUS GG 1 EACH CAP.SPRINK PO SCH (09:40)
[2018-08-14] MEDS: DAKINS QUARTER STRENGTH (0.125%) 480 ML BOTTLE TOP SCH (09:41)
[2018-08-14] MEDS: HYDROGEL DRESSING 90 GM TUBE TP SCH (09:41)
--- NOTE | 2018-08-14 17:34 | NUR ---
UTILITY SALES REPRESENTATIVE NOTES Patient discharged to [facility] at this time. VS stable with no acute distress. Breathing even and unlabored on room air with no respiratory distress. Denies pain. Skin assessment pictures taken and placed in chart. Medication reconciliation and discharge orders reviewed and explained to Patient. Patient verbalized understanding. Paperwork given to Ambulance transport. Report given to Omer CANALES. All belongings with Patient. Patient will continue IV ABX, Wound TX and follow up with MD at [facility]. Patient picked up by Ambulance transport. Addendum: 08/14/18 at 1958 by LUIS DANIEL CABRERA RN PICC line on JORGE clean, dry, intact and flushing well. RIGHT HAND THIRD DIGIT dressing clean, dry, and intact. Sacrum st. 3 clean with Hydrogel and Mepilex dressing in place.
== END 2018-08-14 17:35 | DRG 320 ==
LOC: ER 15:34 → MED 19:45
PROVIDERS: ADMIT Nurse Practitioner Acute Care; ATTEND Nurse Practitioner Acute Care
PROC: 0PBT0ZZ Excision of Right Finger Phalanx, Open Approach (ICD-10-PCS; principal; 2018-08-11)
PROC: 0JB70ZZ Excision of Back Subcutaneous Tissue and Fascia, Open Approach (ICD-10-PCS; 2018-08-12)
DX: M86.8X4 Other osteomyelitis, hand (principal); E44.0 Moderate protein-calorie malnutrition; L89.153 Pressure ulcer of sacral region, stage 3; D68.59 Other primary thrombophilia; L03.011 Cellulitis of right finger; M48.00 Spinal stenosis, site unspecified; Z68.30 Body mass index [BMI] 30.0-30.9, adult; E66.9 Obesity, unspecified; L60.3 Nail dystrophy; R53.1 Weakness; H10.9 Unspecified conjunctivitis; G89.29 Other chronic pain
CPT/HCPCS: 36415; 71045-TC; 73200-TC; 80048-TC; 80061-TC; 80202-TC; 81000-TC; 83605-TC; 83735-TC; 84100-TC; 85025-TC; 87040-TC; 87070-TC; 87081-TC; 87186-TC; 97110-TC; 97116-TC; 97530-TC; A6248; A6402; A6403; A6407; G0378; J0696; J2543; J3370; J3490; J7030; J7050; J7060

== ENCOUNTER 2018-08-19 08:54 | Inpatient (IN) ==
[~2018-08-19] VITALS: Ht 160 cm; Wt 75.3 kg
[~2018-08-19 08:54] MED LIST changes: +CEFT1VIA15 IV; -HYDR-3972 PO; +HYDR-4384 PO; +L.AC460C PO; -LACT1CAP72 PO; +LEVO500T75 PO; -MAG30ORA PO; +MAG355OR18 PO; +MAGN400O6 GT; -MAGN400O6 PO; +SODI473S8 TOP; +SULF15DR6 OP; +TOBR5DRO48 RIGHTEYE; +VANC1.5P20 IV; -ZOLP5TAB2 PO
--- NOTE | 2018-08-19 09:10 | NUR ---
MARIELLE BANERJEE FROM [facility] FOR POSSIBLE R MIDDLE FINGER AMPUTATION. PATIENT CAME IN WITH JORGE PICC LINE. PLACED ON THE MONITOR. WILL MONITOR.
[2018-08-19 09:26] LABS: BASOPHILS % (AUTO) 0.9 % (0.0-2.0); EOSINOPHILS % (AUTO) 4.5 % (0.0-6.0); HEMATOCRIT 35 % (33-45); HEMOGLOBIN 11.9 g/dL (11.5-14.8); LYMPHOCYTES # (AUTO) 0.7 /CMM (0.8-4.8); MEAN CORPUSCULAR HGB CONC 34 g/dl (31.0-36.0); MEAN CORPUSCULAR VOLUME 88 fL (82-100); MONOCYTES # (AUTO) 0.5 /CMM (0.1-1.30); MONOCYTES % (AUTO) 14.8 % (2.0-12.0); NEUTROPHILS # (AUTO) 1.9 /CMM (1.8-8.9); NEUTROPHILS % (AUTO) 58.8 % (43.0-81.0); PLATELET COUNT (AUTO) 281 /CMM (150-450); RED BLOOD CELL COUNT(AUTO) 4.03 MIL/uL (4.0-5.2); WHITE BLOOD COUNT (AUTO) 3.2 K/uL (4.3-11.0)
[2018-08-19 09:39] LABS: CALCIUM, SERUM 8.8 mg/dL (8.5-10.1); CARBON DIOXIDE 25 mmol/L (21-32); CHLORIDE 103 mmol/L (98-107); CREATININE 0.8 mg/dL (0.6-1.3); GLUCOSE 115 mg/dL (74-106); POTASSIUM 3.7 mmol/L (3.5-5.1); SODIUM SERUM 138 mmol/L (136-145); UREA NITROGEN, BLOOD 9 mg/dL (7-18)
[2018-08-19 09:48] LABS: ALANINE AMINOTRANSFERASE 15 U/L (12-78); ALBUMIN 2.2 g/dL (3.4-5.0); ALKALINE PHOSPHATASE 59 U/L (46-116); ASPARTATE AMINOTRANSFERASE 19 U/L (15-37); BILIRUBIN,TOTAL 0.2 mg/dL (0.2-1.0); TOTAL PROTEIN, SERUM 6.9 g/dL (6.4-8.2)
[2018-08-19] MEDS ORDERED: ACID1TAB14 PO (09:51)
--- NOTE | 2018-08-19 10:00 | NUR ---
PAGED DR. OVERTON.
--- NOTE | 2018-08-19 10:26 | NUR ---
SPOKE WITH ZAINAB BANERJEE, PATIENT'S PLAN IS TO HAVE RIGHT 3RD FINGER AMPUTATION BY DR. YANEZ.
[2018-08-19 12:00] VITALS: BP 140/77
--- NOTE | 2018-08-19 12:13 | NUR ---
GAVE REPORT TO LANCE CANALES.
--- NOTE | 2018-08-19 12:30 | NUR ---
RECEIVED PT IN ROOM 111-2. PT DENIES ANY PAIN OR SOB AT PRESENT MOMENT. PT IS IN BED WITH CALL LIGHT IN REACH. BED IS LOCKED AND IN LOWEST POSITION. PHOTOS TAKEN. WILL CONTINUE TO MONITOR.
--- NOTE | 2018-08-19 12:30 | NUR ---
PATIENT TRANSFERRED TO ROOM 311-2 VIA ACLS PROTOCOL. PATIENT A/OX3, NO DISTRESS NOTED.
[2018-08-19] MEDS ORDERED: MAGNESIUM HYDROXIDE 30 ML UDC PO PRN (13:00)
[2018-08-19] MEDS ORDERED: MAG HYDROX/AL HYDROX/SIMETH 30 ML UDC PO PRN ×2 (13:00→13:30)
[2018-08-19] MEDS ORDERED: HYDROCODONE/APAP 5/325MG 1 EACH TABLET PO PRN (13:00)
[2018-08-19] MEDS ORDERED: Z GUARD REMEDY 2 OZ OINT TP PRN (13:00)
[2018-08-19] MEDS ORDERED: ACETAMINOPHEN 325 MG TABLET PO PRN ×2 (13:00→13:30)
[2018-08-19] MEDS ORDERED: ZOLPIDEM TARTRATE 5 MG TABLET PO PRN (13:00)
[2018-08-19] MEDS ORDERED: ONDANSETRON HCL/PF 4 MG/2 ML VIAL IVP PRN (13:00)
--- NOTE | 2018-08-19 13:00 | NUR ---
PT AND PT STATED THEY WILL NOT SIGN ANY CONSENT UNTIL THEY SPEAK WITH SURGEON.
[2018-08-19] MEDS ORDERED: MAGNESIUM HYDROXIDE 30 ML UDC GT PRN (13:30)
[2018-08-19] MEDS ORDERED: FEE PK DOSING 1 MIN EA MC ONE (13:45)
[2018-08-19] MEDS: CEFTRIAXONE 1 G in IV D5W 50 ML IV SCH (14:45)
[2018-08-19] MEDS ORDERED: VANCOMYCIN 1 GM in IV D5W 250ml IV SCH (15:00)
[2018-08-19] MEDS: VANCOMYCIN 1 GM in IV D5W 250 ML IV SCH (15:58)
[2018-08-19 16:00] VITALS: BP 135/81
[2018-08-19] MEDS: ACIDOPHILUS/BULGARICUS 1 EACH TAB.CHEW PO SCH (17:41)
[2018-08-19] MEDS: TOBRAMYCIN/DEXAMETH OPHTH DORPS 2.5 ML BOTTLE RIGHTEYE SCH ×2 (17:41→20:44)
--- NOTE | 2018-08-19 19:30 | NUR ---
IRRIGATION TAX ASSESSOR COLLECTOR CLOSING NOTES REPORT GIVEN TO LEAD PRESS OPERATOR RN. PT DENIES ANY PAIN OR SOB AT PRESENT MOMENT. PT IS SR IN 70'S. BED IS IN LOWEST AND LOCKED POSITION WITH CALL LIGHT WITHIN REACH. PT HAS A JORGE PICC LINE FLUSHING WITH NS. WILL ENDORSE CONTINUITY OF CARE TO LEAD PRESS OPERATOR RN.
--- NOTE | 2018-08-19 19:41 | NUR ---
PRICE ECONOMIST NOTE: RECEIVED PT ON BED ALERT AND ORIENTED X3. ABLE TO MAKE NEEDS KNOWN. NO APPARENT DISTRESS NOTED. DENIES PAIN AND DISCOMFORT AT THIS TIME. ON ROOM AIR, NO SOB NOTED. LEFT UPPER ARM PICC LINE INTACT AND PATENT, FLUSHING WELL. ON TELE MONITOR SINUS RHYTHM HR 72BPM. CALL LIGHT PLACED WITHIN REACH. KEPT CLEAN, DRY AND COMFORTABLE. SAFETY AND FALL PRECAUTIONS OBSERVED AND MAINTAINED. WILL CONTINUE TO MONITOR PT.
[2018-08-19 20:00] VITALS: BP 126/63
[2018-08-20] VITALS (13 sets, daily range): BP systolic 113–150; BP diastolic 64–75
[2018-08-20 06:32] LABS: BASOPHILS % (AUTO) 1.5 % (0.0-2.0); EOSINOPHILS % (AUTO) 7.4 % (0.0-6.0); HEMATOCRIT 35 % (33-45); LYMPHOCYTES # (AUTO) 0.8 /CMM (0.8-4.8); LYMPHOCYTES % (AUTO) 24.8 % (20.0-44.0); MEAN CORPUSCULAR HGB CONC 34 g/dl (31.0-36.0); MEAN CORPUSCULAR VOLUME 87 fL (82-100); MONOCYTES # (AUTO) 0.5 /CMM (0.1-1.30); MONOCYTES % (AUTO) 14.6 % (2.0-12.0); NEUTROPHILS # (AUTO) 1.6 /CMM (1.8-8.9); NEUTROPHILS % (AUTO) 51.7 % (43.0-81.0); PLATELET COUNT (AUTO) 264 /CMM (150-450); RED BLOOD CELL COUNT(AUTO) 4.08 MIL/uL (4.0-5.2); WHITE BLOOD COUNT (AUTO) 3.2 K/uL (4.3-11.0)
--- NOTE | 2018-08-20 06:41 | NUR ---
SLEEVE BASTER NOTE: NO CHANGES NOTED THROUGHOUT THE SHIFT. NO ACUTE DISTRESS NOTED. DENIES PAIN AND DISCOMFORT AT THIS TIME. NO SOB NOTED. ON TELE MONITOR SINUS RHYTHM 77BPM. LEFT UPPER ARM PICC LINE INTACT AND PATENT, FLUSHING WELL. KEPT CLEAN, DRY AND COMFORTABLE. SAFETY AND FALL PRECAUTIONS OBSERVED AND MAINTAINED. WILL ENDORSE TO DAY SHIFT RN FOR CONTINUITY OF CARE.
[2018-08-20 06:55] LABS: CHOLESTEROL 160 mg/dL (<200); HDL CHOLESTEROL 33 mg/dL (40-60); LDL 114 mg/dL (0-99); TRIGLYCERIDES 56 mg/dL (30-150)
[2018-08-20 07:17] LABS: CALCIUM, SERUM 8.4 mg/dL (8.5-10.1); CARBON DIOXIDE 26 mmol/L (21-32); CHLORIDE 105 mmol/L (98-107); CREATININE 0.7 mg/dL (0.6-1.3); GLUCOSE 88 mg/dL (74-106); PHOSPHORUS 3.8 mg/dL (2.5-4.9); POTASSIUM 4.2 mmol/L (3.5-5.1); SODIUM SERUM 138 mmol/L (136-145); UREA NITROGEN, BLOOD 9 mg/dL (7-18)
--- NOTE | 2018-08-20 07:30 | NUR ---
SCENE AND LIGHTING DESIGN LECTURER AM NOTE: RECEIVED PT IN BED,ALERT AND ORIENTED X3. ABLE TO MAKE NEEDS KNOWN. ON RA, NO SOB, NO APPARENT DISTRESS NOTED. DENIES PAIN AND DISCOMFORT AT THIS TIME. LEFT UPPER ARM PICC LINE INTACT AND PATENT, FLUSHES WELL, SITE CLEAR. ON TELE MONITOR SINUS RHYTHM HR 75. PT NPO FOR NOW FOR SCHEDULED SURGERY, AMPUTATION OF RIGHT MIDDLE FINGER BY DR. YANEZ.CALL LIGHT PLACED WITHIN REACH. KEPT CLEAN, DRY AND COMFORTABLE. SAFETY AND FALL PRECAUTIONS OBSERVED AND MAINTAINED. WILL CONTINUE TO MONITOR PT. PER [employer]IATION TACTICAL READINESS OFFICER, BOTH PATIENT AND PT'S REFUSE THE SURGERY AND WOULD NOT SIGN THE CONSENT. SURGERY AND DR. YANEZ AWARE.
[2018-08-20] MEDS: VANCOMYCIN 1 GM in IV D5W 250 ML IV SCH (08:32)
[2018-08-20] MEDS: ACIDOPHILUS/BULGARICUS 1 EACH TAB.CHEW PO SCH ×2 (09:00→18:18)
[2018-08-20] MEDS: LEVOFLOXACIN (500MG) 500 MG TABLET PO SCH (09:00)
[2018-08-20] MEDS ORDERED: CEFTRIAXONE IV SCH (09:00)
[2018-08-20] MEDS: TOBRAMYCIN/DEXAMETH OPHTH DORPS 2.5 ML BOTTLE RIGHTEYE SCH ×4 (09:17→21:36)
[2018-08-20] MEDS ORDERED: BUPIVACAINE 0.5 % PF 150 MG/30 ML VIAL ONE (09:36)
--- NOTE | 2018-08-20 09:53 | NUR ---
MS RN NOTES DC TELEMETRY PER DR. BOURGEOIS.
--- NOTE | 2018-08-20 10:35 | NUR ---
MS RN NOTES DR. YANEZ AT BEDSIDE. PER PATIENT, SHE AGREE TO HAVE THE SURGERY DONE TO HER RIGHT MIDDLE FINGER. "THIS IS MY BODY AND I ALREADY AGREED. NO NEED TO ASK MY BECAUSE HE WILL DEFINITELY DISAGREE". PT KEPT NPO AND WILL PROCEED WITH SURGERY
--- NOTE | 2018-08-20 11:00 | NUR ---
MS RN NOTES PT PICKED UP FOR SURGERY.
[2018-08-20] MEDS ORDERED: LIDOCAINE HCL/PF 1% 30 ML SDV ONE (11:48)
--- NOTE | 2018-08-20 12:50 | NUR ---
MS RN NOTES PT BACK FROM SURGERY. S/P Amputation of the right long finger through the middle phalanx BY DR. RENATA OVERTON. VSS
[2018-08-20] MEDS: CEFTRIAXONE 1 G in IV D5W 50 ML IV SCH (14:10)
--- NOTE | 2018-08-20 16:23 | NUR ---
Patient is readmitted less than 7 days due to osteomyelitis right long finger failed outpatient treatment, scheduled for amputation. She resides at [facility] [phone]. She requires assistance with adl's. Family involved and supportive. Current dc plan is to return to [facility]. Addendum: 08/20/18 at 1624 by PEDRO LUIS HOPKINS RN Amended: Links added.
--- NOTE | 2018-08-20 19:27 | NUR ---
MS RN NOTES PT RESTING COMFORTABLY IN BED. ALL NEEDS MET. NOT IN ANY DISTRESS. NO BLEEDING TO SURGICAL SITE. CDI DRESSING. NO C/O PAIN. NO OTHER SIGNIFICANT CHANGE IN CONDITION. WILL ENDORSE TO NEXT SHIFT FOR MOOSE.
--- NOTE | 2018-08-20 20:07 | NUR ---
MS/RN RECEIVED PATIENT SITTING ON CHAIR AT BEDSIDE, AWAKE, ALERT, ORIENTED, COMFORTABLE, NO C/O PAIN, NO DISTRESS NOTED, ASSISTED TO THE TOILET AND BACK TO CHAIR. FALL PRECAUTION PER PROTOCOL. WILL MONITOR.
[2018-08-21] MEDS: VANCOMYCIN 1 GM in IV D5W 250 ML IV SCH (03:14)
[2018-08-21 04:29] VITALS: BP 132/67
--- NOTE | 2018-08-21 06:15 | NUR ---
MS1/RN PATIENT STILL SLEEPING, APPEAR COMFORTABLE, NO SIGNS OF DISTRESS NOTED, CALL LIGHT IN REACH, ALL NEEDS ATTENDED AT THIS TIME, WILL CONTINUE TO MONITOR.
--- NOTE | 2018-08-21 07:30 | NUR ---
MS RN OPENING NOTES RECEIVED PATIENT IN BED SLEEPING COMFORTABLY. EASILY AROUSABLE. ALERT AND ORIENTED X4. NO PAIN OR ACUTE DISTRESS AT THIS TIME. RESPIRATION EVEN AND UNLABORED. SKIN IS DRY WARM TO TOUCH. NOTED WITH JORGE PICC LINE DRESSING INTACT. ALL NEEDS ANTICIPATED. CALL LIGHT WITHIN REACHED. BED LOCKED AND LOWEST POSITION. SAFETY MEASURES OBSERVED. PLAN OF CARE DISCUSSED. WILL CONTINUE TO MONITOR.
[2018-08-21 07:35] LABS: BASOPHILS % (AUTO) 0.8 % (0.0-2.0); HEMATOCRIT 35 % (33-45); HEMOGLOBIN 11.4 g/dL (11.5-14.8); LYMPHOCYTES # (AUTO) 1.1 /CMM (0.8-4.8); LYMPHOCYTES % (AUTO) 28.2 % (20.0-44.0); MEAN CORPUSCULAR HGB CONC 33 g/dl (31.0-36.0); MEAN CORPUSCULAR VOLUME 86 fL (82-100); MONOCYTES # (AUTO) 0.5 /CMM (0.1-1.30); MONOCYTES % (AUTO) 12.5 % (2.0-12.0); NEUTROPHILS # (AUTO) 2.1 /CMM (1.8-8.9); NEUTROPHILS % (AUTO) 53.5 % (43.0-81.0); PLATELET COUNT (AUTO) 276 /CMM (150-450); RED BLOOD CELL COUNT(AUTO) 4.07 MIL/uL (4.0-5.2); WHITE BLOOD COUNT (AUTO) 3.9 K/uL (4.3-11.0)
[2018-08-21 07:43] LABS: CALCIUM, SERUM 8.6 mg/dL (8.5-10.1); CARBON DIOXIDE 26 mmol/L (21-32); CHLORIDE 104 mmol/L (98-107); CREATININE 0.7 mg/dL (0.6-1.3); GLUCOSE 85 mg/dL (74-106); POTASSIUM 3.9 mmol/L (3.5-5.1); SODIUM SERUM 139 mmol/L (136-145); UREA NITROGEN, BLOOD 9 mg/dL (7-18)
[2018-08-21 08:00] VITALS: BP 96/56
[2018-08-21] MEDS: TOBRAMYCIN/DEXAMETH OPHTH DORPS 2.5 ML BOTTLE RIGHTEYE SCH ×4 (09:06→21:29)
[2018-08-21] MEDS: ACIDOPHILUS/BULGARICUS 1 EACH TAB.CHEW PO SCH ×2 (09:06→16:23)
[2018-08-21] MEDS: LEVOFLOXACIN (500MG) 500 MG TABLET PO SCH (09:06)
[2018-08-21] MEDS: CEFTRIAXONE 1 G in IV D5W 50 ML IV SCH (14:52)
--- NOTE | 2018-08-21 18:50 | NUR ---
RN CLOSING NOTES PATIENT IN BED SLEEPING COMFORTABLY. EASILY AROUSABLE. NO PAIN OR ACUTE DISTRESS AT THIS TIME. RESPIRATION EVEN AND UNLABORED. SKIN IS DRY WARM TO TOUCH. PATIENT TOLERATED MEALS AND MEDS WELL. PATIENT CONTINUES TO REMAIN IN STABLE CONDITION. DRESSING ON RIGHT MIDDLE FINGER WAS CHANGED. ALL NEEDS ANTICIPATED. CALL LIGHT WITHIN REACHED. ENDORSED TO PM NURSE FOR MOOSE.
[2018-08-21 20:00] VITALS: BP 105/66
[2018-08-21] MEDS ORDERED: VANCOMYCIN 1 GM in IV D5W 250 ML IV SCH (21:00)
[2018-08-21] MEDS: AMPICILLIN 1 GM in IV NS 0.9% 50 ML IV SCH (21:24)
[2018-08-22 04:00] VITALS: BP 119/75
[2018-08-22] MEDS: AMPICILLIN 1 GM in IV NS 0.9% 50 ML IV SCH ×3 (05:06→20:34)
[2018-08-22 06:20] LABS: CALCIUM, SERUM 8.3 mg/dL (8.5-10.1); CARBON DIOXIDE 28 mmol/L (21-32); CHLORIDE 106 mmol/L (98-107); CREATININE 0.7 mg/dL (0.6-1.3); GLUCOSE 90 mg/dL (74-106); POTASSIUM 4.3 mmol/L (3.5-5.1); SODIUM SERUM 141 mmol/L (136-145); UREA NITROGEN, BLOOD 10 mg/dL (7-18)
--- NOTE | 2018-08-22 07:30 | NUR ---
RN MS OPENING NOTES RECEIVED PATIENT IN BED SLEEPING COMFORTABLY. EASILY AROUSABLE. ALERT AND ORIENTED X4. NO PAIN OR ACUTE DISTRESS AT THIS TIME. RESPIRATION EVEN AND UNLABORED. SKIN IS DRY WARM TO TOUCH. NOTED WITH JORGE PICC LINE DRESSING INTACT. ALL NEEDS ANTICIPATED. CALL LIGHT WITHIN REACHED. BED LOCKED AND LOWEST POSITION. SAFETY MEASURES OBSERVED. PLAN OF CARE DISCUSSED. WILL CONTINUE TO MONITOR
[2018-08-22 08:00] VITALS: BP 140/72
[2018-08-22] MEDS: TOBRAMYCIN/DEXAMETH OPHTH DORPS 2.5 ML BOTTLE RIGHTEYE SCH ×4 (08:21→20:37)
[2018-08-22] MEDS: LEVOFLOXACIN (500MG) 500 MG TABLET PO SCH (08:21)
[2018-08-22] MEDS: ACIDOPHILUS/BULGARICUS 1 EACH TAB.CHEW PO SCH ×2 (08:21→17:12)
[2018-08-22 12:16] LABS: BASOPHILS # (AUTO) 0.1 /CMM (0.0-0.2); BASOPHILS % (AUTO) 1.4 % (0.0-2.0); EOSINOPHILS % (AUTO) 6.5 % (0.0-6.0); HEMATOCRIT 33 % (33-45); HEMOGLOBIN 10.9 g/dL (11.5-14.8); LYMPHOCYTES % (AUTO) 26.2 % (20.0-44.0); MEAN CORPUSCULAR HGB CONC 33 g/dl (31.0-36.0); MEAN CORPUSCULAR VOLUME 87 fL (82-100); MONOCYTES # (AUTO) 0.4 /CMM (0.1-1.30); MONOCYTES % (AUTO) 11.6 % (2.0-12.0); NEUTROPHILS % (AUTO) 54.3 % (43.0-81.0); PLATELET COUNT (AUTO) 260 /CMM (150-450); RED BLOOD CELL COUNT(AUTO) 3.78 MIL/uL (4.0-5.2); WHITE BLOOD COUNT (AUTO) 3.8 K/uL (4.3-11.0)
[2018-08-22 16:00] VITALS: BP 133/60
--- NOTE | 2018-08-22 19:32 | NUR ---
RN CLOSING NOTES PATIENT IN CHAIR SITTING COMFORTABLY. EASILY AROUSABLE. ALERT AND ORIENTED X4. NO PAIN OR ACUTE DISTRESS AT THIS TIME. RESPIRATION EVEN AND UNLABORED. SKIN IS DRY WARM TO TOUCH. NOTED WITH JORGE PICC LINE DRESSING INTACT. ALL NEEDS ANTICIPATED. CALL LIGHT WITHIN REACHED. BED LOCKED AND LOWEST POSITION. SAFETY MEASURES OBSERVED. PLAN OF CARE DISCUSSED. WILL ENDORSE CONTINUITY OF CARE TO MANAGER IN HOME [employer]ORATORY EQUIPMENT CLEANER.
[2018-08-22 20:00] VITALS: BP 137/92
[2018-08-23 04:00] VITALS: BP 142/83
[2018-08-23] MEDS: AMPICILLIN 1 GM in IV NS 0.9% 50 ML IV SCH ×2 (05:19→12:49)
[2018-08-23 06:25] LABS: BASOPHILS # (AUTO) 0.1 /CMM (0.0-0.2); BASOPHILS % (AUTO) 1.3 % (0.0-2.0); CALCIUM, SERUM 8.5 mg/dL (8.5-10.1); CARBON DIOXIDE 27 mmol/L (21-32); CHLORIDE 106 mmol/L (98-107); CREATININE 0.6 mg/dL (0.6-1.3); EOSINOPHILS % (AUTO) 5.4 % (0.0-6.0); GLUCOSE 87 mg/dL (74-106); HEMATOCRIT 35 % (33-45); HEMOGLOBIN 11.6 g/dL (11.5-14.8); LYMPHOCYTES # (AUTO) 1.1 /CMM (0.8-4.8); LYMPHOCYTES % (AUTO) 25.8 % (20.0-44.0); MEAN CORPUSCULAR HGB CONC 33 g/dl (31.0-36.0); MEAN CORPUSCULAR VOLUME 86 fL (82-100); MONOCYTES # (AUTO) 0.5 /CMM (0.1-1.30); MONOCYTES % (AUTO) 10.8 % (2.0-12.0); NEUTROPHILS # (AUTO) 2.5 /CMM (1.8-8.9); NEUTROPHILS % (AUTO) 56.7 % (43.0-81.0); PLATELET COUNT (AUTO) 279 /CMM (150-450); POTASSIUM 3.9 mmol/L (3.5-5.1); RED BLOOD CELL COUNT(AUTO) 4.05 MIL/uL (4.0-5.2); SODIUM SERUM 141 mmol/L (136-145); UREA NITROGEN, BLOOD 11 mg/dL (7-18); WHITE BLOOD COUNT (AUTO) 4.4 K/uL (4.3-11.0)
--- NOTE | 2018-08-23 07:15 | NUR ---
MS RN OPENING NOTES RECEIVED PATIENT AWAKE IN BED IN NO ACUTE SIGNS OF DISTRESS. HOB ELEVATED. A/O X4. VERBALLY RESPONSIVE, DENIES PAIN OR ANY DISCOMFORTS AT THIS TIME. ON ROOM AIR, RESPIRATIONS EVEN AND UNLABORED. SKIN WARM AND DRY TO TOUCH. JORGE PICC LINE IN PLACE AND PATENT WITH DRESSING IN PLACE AND DRY. SAFETY MEASURES IN PLACE. BED IN LOW LOCKED POSITION WITH SIDE RAILS U PX2 CALL LIGHT WITHIN REACH. WILL CONTINUE TO MONITOR PT ACCORDINGLY.
[2018-08-23 08:00] VITALS: BP 157/79
[2018-08-23] MEDS: TOBRAMYCIN/DEXAMETH OPHTH DORPS 2.5 ML BOTTLE RIGHTEYE SCH ×3 (08:40→16:32)
[2018-08-23] MEDS: ACIDOPHILUS/BULGARICUS 1 EACH TAB.CHEW PO SCH ×2 (08:40→16:32)
[2018-08-23] MEDS: LEVOFLOXACIN (500MG) 500 MG TABLET PO SCH (08:40)
[2018-08-23] MEDS ORDERED: LEVO500T2 PO (14:38)
[2018-08-23] MEDS ORDERED: ampicillin IV (14:38)
[2018-08-23 16:00] VITALS: BP 137/75
--- NOTE | 2018-08-23 18:30 | NUR ---
RN CLOSING NOTES PATIENT SITTING ON CHAIR WATCHING TV AT BEDSIDE AT THIS TIME. A/O X4. ABLE TO MAKE NEEDS KNOWN. ON ROOM AIR, TOLERATING WELL WITH NO SOB NOTED. PICC LINE ON JORGE INTACT AND PATENT, DRESSING CHANGED THIS AFTERNOON. ALL NEEDS AND CARE ATTENDED WELL. PT FOR DISCHARGED TO [facility], REPORT GIVEN TO RN TOLL GATE KEEPER BOUBACAR AND PT WILL GO TO 34A. WILL ENDORSE TO MITTEN STITCHER NURSE.
--- NOTE | 2018-08-23 19:56 | NUR ---
RN NOTE PATIENT WAS DISCHARGED TO [facility], PICC LINE DRESSING INTACT, NO S/S OF INFECTION/INFILTRATION NOTED, ABLE TO WALK WITH ASSIST, ALERT/ORIENTED X 4, NO PAIN OR DISCOMFORT, S/P AMPUTATION OF RIGHT MIDDLE FINGER, DRESSING IS INTACT, NO LABORED BREATHING NOTED, AFEBRILE, VITAL SIGNS WITHIN NORMAL LIMITS, ALL BELONGINGS TAKEN AND BELONGING'S LIST SIGNED, ALL SAFETY MEASURES TAKEN
== END 2018-08-23 20:30 | DRG 316 ==
LOC: ER 08:55 → TELE1 11:28 → MEDSG1 08-20 10:05
PROVIDERS: ADMIT Family Medicine; ATTEND Hospitalist
PROC: 0X6Q0Z2 Detachment at Right Middle Finger, Mid, Open Approach (ICD-10-PCS; principal; 2018-08-20)
DX: M86.8X4 Other osteomyelitis, hand (principal); I21.A1 Myocardial infarction type 2; E43 Unspecified severe protein-calorie malnutrition; E88.09 Other disorders of plasma-protein metabolism, not elsewhere classified; R73.9 Hyperglycemia, unspecified; L03.011 Cellulitis of right finger; D72.819 Decreased white blood cell count, unspecified; Z68.29 Body mass index [BMI] 29.0-29.9, adult; R70.0 Elevated erythrocyte sedimentation rate
CPT/HCPCS: 36415; 71045-TC; 73140-TC; 80048-TC; 80061-TC; 80076-TC; 80202-TC; 83605-TC; 83735-TC; 84100-TC; 84484-TC; 85025-TC; 85652-TC; 85730-TC; 86140-TC; 87040-TC; 87070-TC; 87081-TC; 88305-TC; 88311-TC; 88312-TC; A4216; A6402; A6403; G0378; J0290; J0696; J2704; J3370; J3490; J7050; J7060